=== PATIENT | female | born 2000 | race Caucasian/White ===

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

== ENCOUNTER 2018-09-28 09:06 | Emergency (ER) | payer OTHER, BC ==
[2018-09-28 09:16] VITALS: BP 124/73; PULSE 16; TEMP 98; BMI 25.7
[2018-09-28] MEDS ORDERED: IBUPROFEN 600 MG TABLET (FP) PO ONE ×2 (10:43→10:44)
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
== END 2018-09-28 12:01 | disposition home or self-care (01) ==
LOC: JERFT 09:06
DX: S29.8XXA Other specified injuries of thorax, initial encounter (principal); R07.81 Pleurodynia; V43.62XA Car passenger injured in collision with other type car in traffic accident, initial encounter; Y92.414 Local residential or business street as the place of occurrence of the external cause; Y93.89 Activity, other specified; Y99.8 Other external cause status
CPT/HCPCS: 71101-TC-RT-FY; 72100-TC-FY; 99281-25

== ENCOUNTER 2018-10-08 17:43 | Emergency (ER) | payer BC, OTHER ==
[2018-10-08 17:55] VITALS: BP 119/81; PULSE 105; TEMP 98.1; BMI 23.3
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
[2018-10-08] MEDS ORDERED: IBUPROFEN 400 MG TABLET (FP) PO ONE (20:23)
== END 2018-10-08 20:43 | disposition home or self-care (01) ==
LOC: JERFT 17:43
DX: S00.83XA Contusion of other part of head, initial encounter (principal); W50.0XXA Accidental hit or strike by another person, initial encounter; Y93.89 Activity, other specified; Y92.89 Other specified places as the place of occurrence of the external cause; Y99.8 Other external cause status
CPT/HCPCS: 70486-TC; 99281-25

== ENCOUNTER 2022-02-26 20:26 | Emergency (ER) | payer OTHER, BC ==
[2022-02-26 20:36] VITALS: BP 119/79; PULSE 94; TEMP 98.2; BMI 30.7
[2022-02-26] MEDS ORDERED: SODIUM CHLORIDE 0.9% 500 ML INFUS.BAG IV ONE (21:40)
[2022-02-26] MEDS ORDERED: MAG HYDROX/AL HYDROX/SIMETH 30 ML UNIT-DOSE CUP PO ONE (21:40)
[2022-02-26] MEDS ORDERED: ONDANSETRON 4 MG/2 ML VIAL IVPB ONE (21:40)
[2022-02-26] MEDS ORDERED: FAMOTIDINE 20 MG/50 ML IVPB 20 MG/50 ML MG IVPB ONE ×2 (21:40→21:49)
[2022-02-26] MEDS ORDERED: MAG HYDROX/AL HYDROX/SIMETH 30 ML UNIT-DOSE CUP ONE (21:48)
[2022-02-26] MEDS ORDERED: ONDANSETRON 4 MG/2 ML VIAL ONE (21:49)
[2022-02-26] MEDS ORDERED: ACETAMINOPHEN 1000 MG/100 ML BAG IVPB ONE (22:04)
[2022-02-26 22:29] LABS: BASO % 0.7 % (0-2.0); HEMATOCRIT 39.7 % (32.4-45.2); HEMOGLOBIN 13.2 GM/dL (10.7-15.3); LYMPH % 31.4 % (8-40); MCH 26.8 pg (25.7-33.7); MCHC 33.3 g/dl (32.0-36.0); MEAN CELL VOLUME 80.5 fl (80-96); MEAN PLT VOLUME 7.4 fl (7.5-11.1); MONO % 6.1 % (3.8-10.2); NEUT % 59.8 % (42.8-82.8); PLATELET COUNT 320 10^3/uL (134-434); RBC 4.93 M/mm3 (3.60-5.2); RDW 13.7 % (11.6-15.6); WHITE BLOOD COUNT 8.7 K/mm3 (4.0-10.0)
[2022-02-26] MEDS ORDERED: ACETAMINOPHEN INJECTION 100 ML IVPB ONE (22:29)
[2022-02-26 22:36] LABS: INR 0.9 (0.83-1.09); PROTHROMBIN TIME (PATIENT) 10.3 SEC (9.7-13.0)
[2022-02-26 22:39] LABS: ACTIVATED PTT 27.6 SECONDS (25.2-36.5)
[2022-02-26 22:50] LABS: CALCIUM 9.1 mg/dL (8.5-10.1)
[2022-02-26 22:51] LABS: ALBUMIN 3.4 g/dl (3.4-5.0); BLOOD UREA NITROGEN 9.1 mg/dL (7-18); MAGNESIUM 2.3 mg/dL (1.8-2.4)
[2022-02-26 22:54] LABS: CREATININE 0.7 mg/dL (0.55-1.3)
[2022-02-26 22:55] LABS: BILIRUBIN,TOTAL 0.2 mg/dL (0.2-1); TOT PROT 7.4 g/dl (6.4-8.2)
[2022-02-27 00:03] LABS: PH,URINE 7.5 (5.0-8.0); URINE APPEARANCE CLOUDY; URINE BILIRUBIN NEGATIVE (NEGATIVE); URINE COLOR YELLOW; URINE GLUCOSE (UA) NEGATIVE (NEGATIVE); URINE KETONE NEGATIVE (NEGATIVE); URINE LEUK ESTERASE NEGATIVE (NEGATIVE); URINE NITRITE NEGATIVE (NEGATIVE); URINE PROTEIN NEGATIVE (NEGATIVE); URINE UROBILINOGEN 0.2 mg/dL (0.2-1.0)
== END 2022-02-27 04:25 | disposition home or self-care (01) ==
LOC: JER 20:26
PROC: 3E0333Z Introduction of Anti-inflammatory into Peripheral Vein, Percutaneous Approach (ICD-10-PCS; principal; 2022-02-26)
PROC: 3E033GC Introduction of Other Therapeutic Substance into Peripheral Vein, Percutaneous Approach (ICD-10-PCS; 2022-02-26)
PROC: 3E033GC Introduction of Other Therapeutic Substance into Peripheral Vein, Percutaneous Approach (ICD-10-PCS; 2022-02-26)
DX: R53.1 Weakness (principal); R42 Dizziness and giddiness; K92.1 Melena; R10.13 Epigastric pain
CPT/HCPCS: 36415; 74177-TC; 76705-TC; 80053; 81003; 82272; 83690; 83735; 84443; 84703; 85025; 85610; 85730; 86850; 86900; 86901; 87086; 93005; 93010; 99285-25; Q9967

== ENCOUNTER 2022-04-26 07:37 | Inpatient (IN) | payer OTHER, BC ==
[2022-04-26 07:59] VITALS: BMI 29.1
[2022-04-26] MEDS ORDERED: IBUPROFEN 400 MG TABLET (FP) PO ONE (08:07)
[2022-04-26] MEDS ORDERED: LIDOCAINE 5% TOPICAL PATCH TP ONE (08:19)
[2022-04-26] MEDS ORDERED: LIDOCAINE 5% TOPICAL PATCH ONE (08:31)
[2022-04-26] MEDS ORDERED: methylPREDNISolone NA SUCC 125 MG/2 ML VIAL IVPB ONE (09:21)
[2022-04-26] MEDS ORDERED: methylPREDNISolone NA SUCC 125 MG/2 ML VIAL ONE (09:43)
[2022-04-26 10:58] VITALS: TEMP 97.9
[2022-04-26] MEDS ORDERED: LIDOCAINE 5% TOPICAL PATCH TP SCH (11:45)
[2022-04-26] MEDS ORDERED: PANTOPRAZOLE 40 MG TABLET PO SCH (11:45)
[2022-04-26] MEDS ORDERED: KETOROLAC TROMETHAMINE 15 MG/ML VIAL IVPUSH PRN (15:10)
[2022-04-26 19:45] VITALS: BP 128/76; PULSE 86; RESP 16
[2022-04-26] MEDS ORDERED: HEPARIN NA (PORCINE) 5,000 UNITS/ML 1ML VIAL SQ SCH (22:00)
[2022-04-26] MEDS ORDERED: LIDOCAINE PATCH REMOVAL MC SCH (22:00)
[2022-04-27] MEDS ORDERED: DEXAMETHASONE SOD PHOSPHATE 4 MG/1 ML VIAL IVPUSH SCH (10:00)
== END 2022-04-26 19:47 | disposition home or self-care (01) | DRG 206 ==
LOC: JER 07:37 → JERBED 09:19 → OBSVTOIN 11:29
PROVIDERS: ADMIT Internal Medicine; ATTEND Internal Medicine
DX: M94.0 Chondrocostal junction syndrome [Tietze] (principal); J45.901 Unspecified asthma with (acute) exacerbation; K21.9 Gastro-esophageal reflux disease without esophagitis
CPT/HCPCS: 71046-TC-FY; 71111-TC-FY; 71250-TC; 84703; 93005; 93010; 99285-25; C9803-CS; G0378; U0003; U0005

== ENCOUNTER 2022-12-17 17:57 | Emergency (ER) | payer BC, OTHER ==
[2022-12-17 18:07] VITALS: BP 124/74; PULSE 63; RESP 18; TEMP 98; BMI 29.1
[2022-12-17] MEDS ORDERED: diazePAM 2 MG TABLET PO ONE (18:27)
[2022-12-17] MEDS ORDERED: ACETAMINOPHEN 500 MG TABLET (FP) PO ONE (18:27)
[2022-12-17] MEDS ORDERED: LIDOCAINE 5% TOPICAL PATCH TP ONE (18:27)
[2022-12-17] MEDS ORDERED: ACETAMINOPHEN 500 MG TABLET (FP) ONE (18:30)
[2022-12-17] MEDS ORDERED: LIDOCAINE 5% TOPICAL PATCH ONE (18:30)
[2022-12-17] MEDS ORDERED: diazePAM 2 MG TABLET ONE (18:30)
[2022-12-17] MEDS ORDERED: LIDOCAINE PATCH REMOVAL MC SCH (22:00)
== END 2022-12-17 21:00 | disposition home or self-care (01) ==
LOC: JERFT 17:57 → JER 17:57 → JERFT 21:00
DX: M54.2 Cervicalgia (principal)
CPT/HCPCS: 84703; 99283-25

== ENCOUNTER 2023-02-28 22:56 | Emergency (ER) | payer BC, OTHER ==
[2023-02-28 23:05] VITALS: BP 122/81; PULSE 84; RESP 18; TEMP 99; BMI 29.1
[2023-02-28] MEDS ORDERED: ACETAMINOPHEN 325 MG TABLET (FP) PO ONE (23:17)
[2023-02-28] MEDS ORDERED: diphenhydrAMINE HCL 25 MG CAPSULE (FP) PO ONE ×2 (23:17→23:24)
[2023-02-28] MEDS ORDERED: ACETAMINOPHEN 325 MG TABLET (FP) ONE (23:24)
== END 2023-03-01 00:41 | disposition home or self-care (01) ==
LOC: JER 22:56
DX: K13.0 Diseases of lips (principal); R68.84 Jaw pain; R51.9 Headache, unspecified; L29.9 Pruritus, unspecified; R22.0 Localized swelling, mass and lump, head; L50.9 Urticaria, unspecified
CPT/HCPCS: 99283-25

== ENCOUNTER 2024-03-30 23:09 | Emergency (ER) | payer BC ==
[2024-03-30 23:33] VITALS: BP 136/68; RESP 19; BMI 30.7
[2024-03-31] MEDS ORDERED: ALBUTEROL SO4 2.5/IPRATROPIUM 0.5 INH SOL 3 ML VIAL.NEB. NEB ONE (00:36)
[2024-03-31 01:12] LABS: BASO % 0.7 % (0-2.0); EOS % 9.5 % (0-4.5); HEMATOCRIT 38.4 % (32.4-45.2); HEMOGLOBIN 12.9 GM/dL (10.7-15.3); LYMPH % 26.3 % (8-40); MCH 26.2 pg (25.7-33.7); MCHC 33.6 g/dl (32.0-36.0); MONO % 8.2 % (3.8-10.2); NEUT % 55.3 % (42.8-82.8); PLATELET COUNT 288 10^3/uL (134-434); RBC 4.92 M/mm3 (3.60-5.2); RDW 13.8 % (11.6-15.6); WHITE BLOOD COUNT 6.9 K/mm3 (4.0-10.0)
[2024-03-31] MEDS ORDERED: methylPREDNISolone NA SUCC 125 MG/2 ML VIAL ONE (01:21)
[2024-03-31] MEDS: methylPREDNISolone NA SUCC 125 MG/2 ML VIAL IVPB ONE (01:27)
[2024-03-31] MEDS: SODIUM CHLORIDE 1,000 ML IV STA (01:27)
[2024-03-31 01:45] LABS: POTASSIUM 3.8 mmol/L (3.5-5.1)
[2024-03-31 01:47] LABS: ALBUMIN 3.2 g/dl (3.4-5.0); BLOOD UREA NITROGEN 10.3 mg/dL (7-18)
[2024-03-31 01:51] LABS: CREATININE 0.8 mg/dL (0.55-1.3)
[2024-03-31 01:52] LABS: BILIRUBIN,TOTAL 0.2 mg/dL (0.2-1); TOT PROT 7.4 g/dl (6.4-8.2)
[2024-03-31] MEDS: ALBUTEROL SO4 2.5/IPRATROPIUM 0.5 INH SOL 3 ML VIAL.NEB. NEB SCH (01:57)
[2024-03-31] MEDS ORDERED: ACETAMINOPHEN 325 MG TABLET (FP) ONE (03:26)
[2024-03-31] MEDS: ACETAMINOPHEN 325 MG TABLET (FP) PO ONE (03:27)
[2024-03-31 03:29] VITALS: TEMP 97.7
[2024-03-31 03:53] VITALS: PULSE 99
[2024-03-31] MEDS: MONTELUKAST NA 5 MG TAB.CHEW PO ONE (03:59)
== END 2024-03-31 03:59 | disposition home or self-care (01) ==
LOC: JER 23:09
PROC: 3E0F7GC Introduction of Other Therapeutic Substance into Respiratory Tract, Via Natural or Artificial Opening (ICD-10-PCS; principal; 2024-03-31)
DX: J45.901 Unspecified asthma with (acute) exacerbation (principal); B34.9 Viral infection, unspecified; Z20.822 Contact with and (suspected) exposure to COVID-19
CPT/HCPCS: 0241U-QW; 36415; 71046-TC-FY; 71275-TC; 80053; 84703; 85025; 85379; 87651; 93005; 93010; 99285-25; Q9967